=== PATIENT | male | born 1960 | race Caucasian/White ===

== ENCOUNTER 2021-01-16 05:25 | Day surgery (SDC) | payer OTHER ==
[2021-01-15 09:01] VITALS: BMI 27.3
[2021-01-16 14:49] VITALS: TEMP 97.9
[2021-01-16 16:15] VITALS: BP 113/49; PULSE 68
== END 2021-01-16 16:30 | disposition home or self-care (01) ==
LOC: JASU-ENDO 05:25
PROVIDERS: ATTEND Internal Medicine Gastroenterology
PROC: 0DJD8ZZ Inspection of Lower Intestinal Tract, Via Natural or Artificial Opening Endoscopic (ICD-10-PCS; principal; 2021-01-16 13:30)
DX: Z12.11 Encounter for screening for malignant neoplasm of colon (principal); Z86.010 Personal history of colon polyps; K63.89 Other specified diseases of intestine